=== PATIENT | female | born 1955 | race African-American/Black ===

== ENCOUNTER 2017-11-11 13:44 | Emergency (ER) | payer SELFPAY ==
[~2017-11-11] VITALS: Ht 170.2 cm; Wt 52.2 kg
[2017-11-11 13:57] VITALS: BP 106/68
[2017-11-11] MEDS ORDERED: TAMIFLU75 MG ORAL (14:28)
[2017-11-11] MEDS ORDERED: IBUPROFEN600 MG ORAL (14:28)
[2017-11-11] MEDS ORDERED: AMOXICILLIN500 MG ORAL (14:28)
[2017-11-11 14:43] VITALS: BP 106/68
--- NOTE | 2017-11-13 07:49 | Emergency Room Report ---
History of Present Illness General Chief Complaint: Flu Like Symptoms Source: Patient Present Illness HPI Patient presents with complaints of bodyaches Feeling weak Sore throat Patient denies any chest pain or shortness of breath Denies any vomiting or diarrhea Patient sore throat as 5/10 worse with swallowing Patient denies any focal weakness Denies any rash symptoms ongoing for the past several days Allergies: Coded Allergies: No Known Allergies (Unverified , 11/11/17) Patient History Past Medical History: see triage record Pertinent Family History: none Reviewed Nursing Documentation: PMH: Agreed, PSxH: Agreed Nursing Documentation-PMH Past Medical History: No Stated History Review of Systems All Other Systems: negative except mentioned in HPI Physical Exam Vital Signs Date Time Temp Pulse Resp B/P (MAP) Pulse Ox O2 Delivery O2 Flow Rate FiO2 11/11/17 13:47 98.1 83 20 106/68 99 Room Air Sp02 EP Interpretation: reviewed, normal General Appearance: well appearing, no apparent distress Head: normocephalic, atraumatic Eyes: bilateral eye PERRL, bilateral eye EOMI ENT: hearing grossly normal, TMs + canals normal, uvula midline, pharyngeal erythema Neck: full range of motion, supple, no meningismus, no bony tend Respiratory: lungs clear, normal breath sounds, no rhonchi, no respiratory distress, no retraction, no accessory muscle use Cardiovascular #1: normal peripheral pulses, regular rate, rhythm, no edema, no gallop, no JVD, no murmur Gastrointestinal: normal bowel sounds, non tender, soft, no mass, no organomegaly, non-distended, no guarding, no hernia, no pulsatile mass, no rebound Genitourinary: no CVA tenderness Musculoskeletal: normal inspection Neurologic: oriented x3, responsive, payroll director III-XII nml as tested, motor strength/ tone normal, sensory intact Psychiatric: mood/affect normal Skin: normal color, no rash, warm/dry, palpation normal Lymphatic: normal inspection, no adenopathy Medical Decision Making Diagnostic Impression: Primary Impression: Influenza-like symptoms Additional Impression: pharyngitis ER Course Multiple differentials considered Including but not limited to influenza, pharyngitis other bacterial pathology Patient is hemodynamically appropriate Given the throat exam patient was also placed on oral antibiotic However does have symptoms of flulike symptoms and therefore put on medication for that as well Upon disposition patient did request and asked regarding medication assistance unfortunately at this time that is not possible to the emergency room Patient was recommended to followup at [facility] she has difficulty with insurance issues , Last Vital Signs Date Time Temp Pulse Resp B/P (MAP) Pulse Ox O2 Delivery O2 Flow Rate FiO2 11/11/17 14:43 98.1 20 106/68 99 Room Air 11/11/17 13:57 83 Status: unchanged Disposition: HOME, SELF-CARE Condition: Stable Scripts Ibuprofen* (MOTRIN*) 600 Mg Tablet 600 MG ORAL Q8H Y for For Pain, #20 TAB 0 Refills Prov: FANG MCCULLOUGH D.O. 11/11/17 Amoxicillin* (AMOXIL*) 500 Mg Capsule 500 MG ORAL THREE TIMES A DAY, #21 CAP Prov: FANG MCCULLOUGH.Tita 11/11/17 Oseltamivir Phosphate (Tamiflu) 75 Mg Capsule 75 MG ORAL TWICE A DAY for 5 Days, CAP Prov: FANG MCCULLOUGH.Tiat 11/11/17 Referrals: NOT CHOSEN IPA/MD,REFERRING (PCP) Patient Instructions: Influenza, Adult, [id number], Pharyngitis, [id number] Additional Instructions: Patient is provided with the discharge instructions notified to follow up with primary doctor in the next 2-3 days otherwise return to the er with any worsening symptoms. Please note that this report is being documented using [employer] technology. This can lead to erroneous entry secondary to incorrect interpretation by the dictating instrument. FANG MCCULLOUGH D.O. Nov 13, 2017 07:49
== END 2017-11-11 14:43 | disposition home or self-care (01) ==
LOC: EMR 14:24
DX: J11.1 Influenza due to unidentified influenza virus with other respiratory manifestations (principal); J02.9 Acute pharyngitis, unspecified
CPT/HCPCS: 99283